=== PATIENT | male | born 1960 | race African-American/Black ===

== ENCOUNTER 2025-05-08 22:55 | Emergency (ER) | payer OTHER | END 2025-05-08 23:58 | LOC: EEVIPCON 22:55 → NAV ERS 22:55 | DX: S90.512A Abrasion, left ankle, initial encounter (principal); E11.22 Type 2 diabetes mellitus with diabetic chronic kidney disease; I12.9 Hypertensive chronic kidney disease with stage 1 through stage 4 chronic kidney disease, or unspecified chronic kidney disease; N18.9 Chronic kidney disease, unspecified; X58.XXXA Exposure to other specified factors, initial encounter; Z79.899 Other long term (current) drug therapy | CPT/HCPCS: 99283 ==